=== PATIENT | female | born 1965 | race African-American/Black ===

== ENCOUNTER 2017-10-06 22:30 | Emergency (ER) | payer MEDICARE, MEDICAID ==
[2017-10-06] MEDS ORDERED: diphenhydrAMINE 50 MG/ML VIAL ONE (23:15)
[2017-10-06] MEDS ORDERED: Acetaminophen 500 MG TAB ONE (23:15)
[2017-10-06] MEDS ORDERED: Metoclopramide HCl 10 MG/2 ML VIAL ONE (23:15)
[2017-10-06] MEDS ORDERED: Ondansetron ODT 4 MG TAB ONE (23:16)
== END 2017-10-07 00:13 | disposition home or self-care (01) ==
LOC: SCSER 22:30
DX: G43.909 Migraine, unspecified, not intractable, without status migrainosus (principal); I50.9 Heart failure, unspecified
CPT/HCPCS: 96365; 96375; J1200; J2765; Q0162